=== PATIENT | female | born 1940 | race Caucasian/White ===

== ENCOUNTER 2018-10-24 06:00 | Day surgery (SDC) | payer MEDICARE, OTHER, MEDICAID ==
[2018-10-24] MEDS ORDERED: MIDAZOLAM 1 MG/ML 2 ML INJ (07:44)
[2018-10-24] MEDS ORDERED: LIDOCAINE 2% (SDV) 5 ML INJ (07:44)
[2018-10-24] MEDS ORDERED: FENTAnyl 50 MCG/ML VIAL (07:44)
[2018-10-24] MEDS ORDERED: PROPOFOL 20 ML (07:44)
== END 2018-10-24 11:15 | disposition home or self-care (01) ==
LOC: GIL 06:00
DX: K64.8 Other hemorrhoids (principal); K57.30 Diverticulosis of large intestine without perforation or abscess without bleeding; K64.4 Residual hemorrhoidal skin tags; Z86.010 Personal history of colon polyps; I10 Essential (primary) hypertension; E78.5 Hyperlipidemia, unspecified
CPT/HCPCS: 45378